=== PATIENT | male | born 1975 | race Caucasian/White ===

== ENCOUNTER 2019-04-02 19:21 | Inpatient (IN) | payer OTHER ==
[2019-04-02 20:02] VITALS: BMI 27.6
--- NOTE | 2019-04-02 21:22 | HP ---
COWS - Scale Resting Pulse: 1= SC 81-100 Sweatin=Flushed/Facial Moisture Restless Observation: 3= Extraneous Movement Pupil Size: 2= Moderately Dilated Bone or Joint Aches: 2= Severe Diffuse Aches Runny Nose/ Eye Tearin= Runny Nose/Eyes GI Upset > 30mins: 2= Nausea/Diarrhea Tremor Observation: 4= Gross Tremor/Twitching Yawning Observation: 0= None Anxiety or Irritability: 4=Extreme Anxiety Goose Flesh Skin: 0=Smooth Skin COWS Score: 22 CIWA Score Nausea/Vomitin Muscle Tremors: 4-Moderate,w/Arms Extend Anxiety: 5 Agitation: 4-Moderately Restless Paroxysmal Sweats: 3 Orientation: 0-Oriented Tacttile Disturbances: 2-Mild Itch/Numbness/Burn Auditory Disturbances: 2-Mild Harshness/Frighten Visual Disturbances: 2-Mild Sensitivity Headache: 2-Mild CIWA-Ar Total Score: 26 - Admission Criteria OASAS Guidelines: Admission for Medically Managed Detox: Requires at least one of the followin. CIWA greater than 12 2. Seizures within the past 24 hours 3. Delirium tremens within the past 24 hours 4. Hallucinations within the past 24 hours 5. Acute intervention needed for co occurring medical disorder 6. Acute intervention needed for co occurring psychiatric disorder 7. Severe withdrawal that cannot be handled at a lower level of care (continued vomiting, continued diarrhea, abnormal vital signs) requiring intravenous medication and/or fluids 8. Admission ROS S - HPI Chief Complaint: DEPENDENT ON HEROIN, ETOH, COCAINE AND XANAX Allergies/Adverse Reactions: Allergies Allergy/AdvReac Type Severity Reaction Status Date / Time No Known Allergies Allergy Verified 04/02/19 20:34 History of Present Illness: THE PT. IS REQUESTING ADMISSION TO THE DETOX UNIT AND CAME FOR MEDICAL CLEARANCE AND H AND PE Exam Limitations: No Limitations - Ebola screening Have you traveled outside of the country in the last 21 days: No (N) Have you had contact with anyone from an Ebola affected area: No Have you been sick,other than usual withdrawal symptoms: No Do you have a fever: No - Review of Systems Constitutional: See HPI, Malaise, Weakness EENT: reports: See HPI Respiratory: reports: See HPI Cardiac: reports: See HPI, Syncope GI: reports: See HPI, Nausea, Poor Appetite, Abdominal cramping : reports: See HPI Musculoskeletal: reports: Muscle Pain, Muscle Weakness Integumentary: reports: See HPI, Flushing, Sweating Neuro: reports: See HPI, Headache, Tremors, Weakness Endocrine: reports: See HPI Psychiatric: reports: Judgement Intact, Orientated x3, Agitated, Anxious, Depressed Patient History - Patient Medical History Hx Asthma: No Hx Chronic Obstructive Pulmonary Disease (COPD): No Hx Cardiac Disorders: No Hx Hypertension: No Hx Seizures: No Hx Diabetes: No Hx Gastrointestinal Disorders: No Hx Genitourinary Disorders: No Hx Sexually Transmitted Disorders: No Hx Renal Disease (ESRD): No Hx Hepatitis C: Yes Hx Suicide Attempt: No Hx Bipolar Disorder: Yes (AND ANXIETY DISORDER) Hx Schizophrenia: No - Patient Surgical History Past Surgical History: No Hx Neurologic Surgery: No Hx Cataract Extraction: No Hx Cardiac Surgery: No Hx Lung Surgery: No Hx Breast Surgery: No Hx Breast Biopsy: No Hx Abdominal Surgery: No Hx Appendectomy: No Hx Cholecystectomy: No Hx Genitourinary Surgery: No Hx Section: No Hx Orthopedic Surgery: No Other Surgical History: RT HAND SX 10 YEARS AGO- SKIN GRAFT; SURGERY FOR COLON CANCER Anesthesia Reaction: No - PPD History Previous Implant?: Yes Documented Results: Negative w/o proof - Smoking Cessation Smoking history: Former smoker Have you smoked in the past 12 months: No Hx Chewing Tobacco Use: No Initiated information on smoking cessation: No 'Breaking Loose' booklet given: 04/02/19 - Substance & Tx. History Hx Alcohol Use: Yes Hx Substance Use: Yes Substance Use Type: Alcohol, Cocaine, Heroin, Tranquilizers Hx Substance Use Treatment: Yes - Substances abused Heroin Substance route: Injection Frequency: Daily Amount used: 20 BAGS Age of first use: 20 Date of last use: 04/02/19 Alcohol Substance route: Oral Frequency: Daily Amount used: LIQUOR- 1 PINT, BEER- 2 SIX PACK Age of first use: 13 Date of last use: 04/02/19 Alprazolam (Xanax) Substance route: Oral Frequency: Daily Amount used: 4MG Age of first use: 20 Date of last use: 04/01/19 Cocaine Substance route: Injection Frequency: Daily Amount used: 20BAGS Age of first use: 20 Date of last use: 04/01/19 Family Disease History - Family Disease History Family History: Denies Admission Physical Exam S - Vital Signs Vital Signs: Vital Signs - 24 hr 04/02/19 04/02/19 04/02/19 20:00 20:36 20:54 Temperature 98.5 F 98.5 F 98.5 F Pulse Rate 83 83 83 Respiratory 18 18 18 Rate Blood Pressure 146/97 146/97 146/97 - Physical General Appearance: Yes: No Apparent Distress, Nourished, Appropriately Dressed , Alcohol on Breath, Tremorous, Irritable, Sweating, Anxious HEENTM: Yes: Hearing grossly Normal, Normocephalic, Normal Voice, SUSHMA, Pharynx Normal Respiratory: Yes: Chest Non-Tender, Lungs Clear, Normal Breath Sounds, No Respiratory Distress, No Accessory Muscle Use Neck: Yes: No masses,lesions,Nodules, Supple, Trachea in good position Breast: Yes: Breast Exam Deferred, Axillae without masses Cardiology: Yes: Regular Rhythm, S1, S2, Tachycardia Abdominal: Yes: Normal Bowel Sounds, Non Tender, Flat, Soft Back: Yes: Normal Inspection Musculoskeletal: Yes: full range of Motion, Gait Steady, Pelvis Stable, Muscle Pain, Muscle weakness Extremities: Yes: Normal Capillary Refill, Non-Tender, Tremors, Swelling Neurological: Yes: script writer II-XII NML intact, Fully Oriented, Alert, Motor Strength 5/5, Normal Response, Depressed Affect Integumentary: Yes: Normal Color, Warm, Moist, Pitting Edema, Track [place] Lymphatic: Yes: Within Normal Limits - Diagnostic (1) Heroin dependence Current Visit: Yes Status: Chronic (2) EtOH dependence Current Visit: Yes Status: Chronic Qualifiers: Substance use status: uncomplicated Qualified Code(s): F10.20 - Alcohol dependence, uncomplicated (3) Cocaine dependence Current Visit: Yes Status: Chronic Qualifiers: Substance use status: uncomplicated Qualified Code(s): F14.20 - Cocaine dependence, uncomplicated (4) Benzodiazepine dependence Current Visit: Yes Status: Chronic (5) Hepatitis C Current Visit: Yes Status: Acute Qualifiers: Viral hepatitis chronicity: unspecified Hepatic coma status: without hepatic coma Qualified Code(s): B19.20 - Unspecified viral hepatitis C without hepatic coma (6) Anxiety disorder Current Visit: Yes Status: Chronic Qualifiers: Anxiety disorder type: generalized anxiety disorder Qualified Code(s): F41.1 - Generalized anxiety disorder (7) Bipolar disorder Current Visit: Yes Status: Chronic Qualifiers: Active/Remission status: remission status unspecified Qualified Code(s): F31.9 - Bipolar disorder, unspecified (8) Colon cancer Current Visit: Yes Status: Chronic Qualifiers: Colon location: unspecified part of colon Qualified Code(s): C18.9 - Malignant neoplasm of colon, unspecified Cleared for Admission [facility] - Detox or Rehab [facility] Level of Care: Medically Managed Detox Regimen/Protocol: Methadone/Librium Breathalyzer - Breathalyzer Breathalyzer: 0.024 Urine Drug Screen - Test Device Lot number: [id number] Expiration date: 12/21/20 - Control Is test valid?: Yes - Results Drug screen NEGATIVE: No Urine drug screen results: YVAN-Cocaine, FEN-Fentanyl, MOP-Opiates, OXY-Oxycodone , MTD-Methadone, BZO-Benzodiazepines Inpatient Rehab Admission - Rehab Decision to Admit Inpatient rehab admission?: No
[2019-04-02] MEDS ORDERED: chlordiazePOXIDE HCL 25 MG CAPSULE PO PRN (21:38)
[2019-04-02] MEDS ORDERED: MENTHOL/PHENOL 1 EACH UD MM PRN (21:38)
[2019-04-02] MEDS ORDERED: IBUPROFEN 400 MG TABLET (FP) PO PRN (21:38)
[2019-04-02] MEDS ORDERED: METHOCARBAMOL 500 MG TABLET PO PRN (21:38)
[2019-04-02] MEDS ORDERED: MELATONIN 5 MG TABLETS PO PRN (21:38)
[2019-04-02] MEDS ORDERED: MAGNESIUM CITRATE 300 ML BOTTLE PO PRN (21:38)
[2019-04-02] MEDS ORDERED: ACETAMINOPHEN 325 MG TABLET (FP) PO PRN ×2 (21:38)
[2019-04-02] MEDS ORDERED: cloNIDine HCL 0.1 MG TABLET PO PRN (21:38)
[2019-04-02] MEDS ORDERED: MAG HYDROX/AL HYDROX/SIMETH 30 ML UNIT-DOSE CUP PO PRN (21:38)
[2019-04-02] MEDS ORDERED: hydrOXYzine PAMOATE 25 MG CAPSULE (FP) PO PRN (21:38)
[2019-04-02] MEDS ORDERED: MAGNESIUM HYDROX 2400MG/30ML ORAL SUSPENSION 30 ML CUP PO PRN (21:38)
[2019-04-02] MEDS ORDERED: BISMUTH SUBSALICYLATE 524 MG/30 ML UD PO PRN (21:38)
[2019-04-02] MEDS ORDERED: NICOTINE POLACRILEX 2 MG GUM BUC PRN (21:38)
[2019-04-02] MEDS: chlordiazePOXIDE HCL 25 MG CAPSULE PO SCH (22:05)
[2019-04-02] MEDS: THIAMINE HCL 100 MG TABLET (FP) PO SCH (22:06)
[2019-04-02] MEDS ORDERED: METHADONE HCL 10 MG TABLET (FOR DETOX USE ONLY) PO ONE (23:00)
[2019-04-03] MEDS: chlordiazePOXIDE HCL 25 MG CAPSULE PO SCH ×4 (05:34→22:18)
[2019-04-03 10:00] LABS: ALBUMIN 3.2 g/dl (3.4-5.0); BILIRUBIN,TOTAL 0.5 mg/dL (0.2-1); CALCIUM 8.4 mg/dL (8.5-10.1); CREATININE 0.7 mg/dL (0.55-1.3); POTASSIUM 3.4 mmol/L (3.5-5.1); TOT PROT 6.5 g/dl (6.4-8.2)
[2019-04-03] MEDS ORDERED: METHADONE HCL 10 MG TABLET (FOR DETOX USE ONLY) PO ONE ×2 (10:00→11:15)
[2019-04-03 10:08] LABS: HEMATOCRIT 36.9 % (35.4-49); MCH 27.2 pg (25.7-33.7); MCHC 32.7 g/dl (32.0-35.9); MEAN CELL VOLUME 83.2 fl (80-96); MEAN PLT VOLUME 8.3 fl (7.5-11.1); PLATELET COUNT 167 K/MM3 (134-434); RBC 4.43 M/mm3 (4.00-5.60); RDW 16.3 % (11.9-15.9); WHITE BLOOD COUNT 3.5 K/mm3 (4.0-10.0)
[2019-04-03] MEDS: PRENATAL VITAMINS W/ FOLIC ACID TABLET (FP) PO SCH (10:12)
--- NOTE | 2019-04-03 11:01 | PN ---
[facility] CIWA - CIWA Score Nausea/Vomitin-Mild Nausea/No Vomiting Muscle Tremors: 4-Moderate,w/Arms Extend Anxiety: 4-Mod. Anxious/Guarded Agitation: 4-Moderately Restless Paroxysmal Sweats: 1-Minimal Palms Moist Orientation: 3-Disoriented Date>2 days Tacttile Disturbances: 0-None Auditory Disturbances: 0-None Visual Disturbances: 0-None Headache: 2-Mild CIWA-Ar Total Score: 19 [facility] COWS - Scale Resting Pulse: 0= FL 80 or Below Sweatin= Chills/Flushing Restless Observation: 1= Difficult to Sit Still Pupil Size: 1= Pupils >than Normal Bone or Joint Aches: 2= Severe Diffuse Aches Runny Nose/ Eye Tearin= Runny Nose/Eyes GI Upset > 30mins: 2= Nausea/Diarrhea Tremor Observation of Outstretched Hands: 2= Slight Tremor Visible Yawning Observation: 2= >3x During Session Anxiety or Irritability: 2=Irritable/Anxious Goose Flesh Skin: 3=Piloerection COWS Score: 18 S Progress Note (SOAP) Subjective: received nurse reported that last methadone visited 03/27/19 patient is in the process of hayden off from methadone 30 mg patient understands methadone hayden regimen of 30 mg to 20 mg to 10 to 5 mg patient has been discharged from the methadone program and patient acknowledged that he is discharged from the methadone program Objective: 04/03/19 11:29 Vital Signs Temperature 98.3 F 04/03/19 09:06 Pulse Rate 76 04/03/19 09:06 Respiratory Rate 18 04/03/19 09:06 Blood Pressure 101/57 L 04/03/19 09:06 O2 Sat by Pulse Oximetry (%) Laboratory Last Values WBC 3.5 K/mm3 (4.0-10.0) L 04/03/19 07:40 RBC 4.43 M/mm3 (4.00-5.60) 04/03/19 07:40 Hgb 12.0 GM/dL (11.7-16.9) 04/03/19 07:40 Hct 36.9 % (35.4-49) 04/03/19 07:40 MCV 83.2 fl (80-96) 04/03/19 07:40 MCH 27.2 pg (25.7-33.7) 04/03/19 07:40 MCHC 32.7 g/dl (32.0-35.9) 04/03/19 07:40 RDW 16.3 % (11.9-15.9) H 04/03/19 07:40 Plt Count 167 K/MM3 (134-434) 04/03/19 07:40 MPV 8.3 fl (7.5-11.1) 04/03/19 07:40 Sodium 138 mmol/L (136-145) 04/03/19 07:40 Potassium 3.4 mmol/L (3.5-5.1) L 04/03/19 07:40 Chloride 102 mmol/L (98-107) 04/03/19 07:40 Carbon Dioxide 30 mmol/L (21-32) 04/03/19 07:40 Anion Gap 6 MMOL/L (8-16) L 04/03/19 07:40 BUN 12 mg/dL (7-18) 04/03/19 07:40 Creatinine 0.7 mg/dL (0.55-1.3) 04/03/19 07:40 Est GFR (CKD-EPI)AfAm 133.02 04/03/19 07:40 Est GFR (CKD-EPI)NonAf 114.77 04/03/19 07:40 Random Glucose 116 mg/dL (74-106) H 04/03/19 07:40 Calcium 8.4 mg/dL (8.5-10.1) L 04/03/19 07:40 Total Bilirubin 0.5 mg/dL (0.2-1) 04/03/19 07:40 AST 230 U/L (15-37) H 04/03/19 07:40 ALT 208 U/L (13-61) H 04/03/19 07:40 Alkaline Phosphatase 62 U/L (45-117) 04/03/19 07:40 Total Protein 6.5 g/dl (6.4-8.2) 04/03/19 07:40 Albumin 3.2 g/dl (3.4-5.0) L 04/03/19 07:40 RPR Titer Nonreactive (NONREACTIVE) 04/03/19 07:40 lab noted low K+ ast elevation 04/03/19 11:37 Assessment: 04/03/19 11:38 withdrawal sx 04/03/19 11:40 low K+ ast elevation Plan: continue detox K+ supplement repeat K+ repeat ast
[2019-04-03] MEDS ORDERED: METHADONE HCL 10 MG TABLET (FOR DETOX USE ONLY) ONE (11:07)
[2019-04-03] MEDS: clonazePAM 0.5 MG TABLET PO PRN (13:59)
[2019-04-03] MEDS: POTASSIUM CHLORIDE ORAL LIQUID 20 MEQ/15 ML PO SCH ×2 (13:59→17:34)
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
[2019-04-03] MEDS ORDERED: risperiDONE 1 MG TABLET (FP) PO SCH (22:00)
[2019-04-03] MEDS ORDERED: DIVALPROEX SODIUM 250 MG TABLET E.C. PO SCH (22:00)
[2019-04-03] MEDS ORDERED: traZODone HCL 100 MG TABLET (FP) PO SCH (22:00)
[2019-04-03] MEDS: THIAMINE HCL 100 MG TABLET (FP) PO SCH (22:17)
[2019-04-04] MEDS: chlordiazePOXIDE HCL 25 MG CAPSULE PO SCH ×2 (05:05→11:24)
[2019-04-04 06:44] VITALS: BP 124/77; PULSE 79; TEMP 97.1
[2019-04-04] MEDS: clonazePAM 0.5 MG TABLET PO PRN (07:49)
[2019-04-04] MEDS ORDERED: METHADONE HCL 10 MG TABLET (FOR DETOX USE ONLY) PO ONE (10:00)
[2019-04-04] MEDS: PRENATAL VITAMINS W/ FOLIC ACID TABLET (FP) PO SCH (10:58)
--- NOTE | 2019-04-04 16:27 | DS ---
[facility] Detox Discharge Summary Admission Date: 04/02/19 Discharge Date: 04/04/19 - History Present History: Alcohol Dependence, Opioid Dependence Additional Comments: 44 years old male admitted on 04/02/19 for alcohol and opiate withdrawal stabilization patient can not reach his sister became angry irritable aggressive toward property verbally abusive toward staff violent toward object security called and urgent discharged - Physical Exam Results Vital Signs: Vital Signs Temperature 97.1 F L 04/04/19 06:43 Pulse Rate 79 04/04/19 06:43 Respiratory Rate 18 04/04/19 06:43 Blood Pressure 124/77 04/04/19 06:43 O2 Sat by Pulse Oximetry (%) - Treatment Hospital Course: Detox Protocol Followed, Responded well - Medication Discharge Medications: Ambulatory Orders Unobtainable 04/02/19
[2019-04-04] MEDS ORDERED: chlordiazePOXIDE HCL 10 MG CAPSULE PO PRN (23:00)
[2019-04-04] MEDS ORDERED: chlordiazePOXIDE HCL 10 MG CAPSULE PO SCH (23:00)
[2019-04-05] MEDS ORDERED: METHADONE HCL 10 MG TABLET (FOR DETOX USE ONLY) PO ONE (10:00)
[2019-04-05] MEDS ORDERED: chlordiazePOXIDE HCL 10 MG CAPSULE PO SCH (23:00)
[2019-04-06] MEDS ORDERED: METHADONE HCL 5 MG TABLET (FOR DETOX USE ONLY) PO ONE (06:00)
== END 2019-04-04 10:02 | disposition home or self-care (01) | DRG 773 ==
LOC: YASAS 19:21 → Y3N 21:06
PROVIDERS: ADMIT Surgery; ATTEND Surgery
PROC: HZ2ZZZZ Detoxification Services for Substance Abuse Treatment (ICD-10-PCS; principal; 2019-04-02)
DX: F11.23 Opioid dependence with withdrawal (principal); F10.230 Alcohol dependence with withdrawal, uncomplicated; F13.230 Sedative, hypnotic or anxiolytic dependence with withdrawal, uncomplicated; F14.20 Cocaine dependence, uncomplicated; F31.9 Bipolar disorder, unspecified; F19.24 Other psychoactive substance dependence with psychoactive substance-induced mood disorder; F41.9 Anxiety disorder, unspecified; I10 Essential (primary) hypertension; G47.00 Insomnia, unspecified; B18.2 Chronic viral hepatitis C; R74.0 Nonspecific elevation of levels of transaminase and lactic acid dehydrogenase [LDH]; R00.0 Tachycardia, unspecified; Z85.038 Personal history of other malignant neoplasm of large intestine; Z87.891 Personal history of nicotine dependence; Z91.19 Patient's noncompliance with other medical treatment and regimen
CPT/HCPCS: 36415; 80053; 84132; 84450; 85027; 86593